=== PATIENT | male | born 1955 | race Caucasian/White ===

== ENCOUNTER → 2017-05-16 | Outpatient (CLI) | payer OTHER ==
[~2017-05-16] MED LIST: ALIGN4 M1 PO; ASPI-COR81 M2 PO; B COMPLEX1 TA2 PO; CLARITIN10 MG PO; CUTIVATE0.05% TOP; DEPAKOTE500 MG PO; DIVALPROEX SOD500 M2 PO; DOXEPIN HCL50 MG PO; DOXEPIN PO; EUCERIN1 CRE TOP; FLOVENT DI100 MCG/A1; FOLIC ACID1 MG PO; GOOD SENSE ASPI81 M3 PO; LIPI20 PO; LOVAZA1 G1 PO; METP PO; MULTI-VITAMINS1 TAB PO; NAMENDA10 M2 PO; OMEGA 3; OMEPRAZOLE DR20 M1 PO; PREPARATION H1 SUP RC; PROVENTIL0.09 MG/A1 INH; SERTRALINE HYD100 MG PO; VIT B COMPLEX; VITAMIN C250 MG PO; ZOLOFT100 MG PO; ZOSYN1 PD1 IV
== END | disposition home or self-care (01) ==
LOC: RD 10:17
DX: J18.9 Pneumonia, unspecified organism (principal); R05 Cough

== ENCOUNTER 2017-09-16 16:07 | Inpatient (IN) | payer OTHER ==
[~2017-09-16] VITALS: Ht 162.6 cm; Wt 93.6 kg
[2017-09-16 17:12] LABS: PLATELET COUNT 308 x10^3mcL (130-400)
[2017-09-16 17:13] LABS: RED CELL DISTRIBUTION WIDTH 15.5 % (11.5-14.5)
[2017-09-16 17:21] LABS: CALCIUM 9.4 mg/dL (8.5-10.1); CARBON DIOXIDE 27.1 mmol/L (21-32); CREATININE SERUM 1.5 mg/dL (0.7-1.3); POTASSIUM SERUM 4.2 mmol/L (3.5-5.1)
[2017-09-16 17:25] LABS: ALBUMIN 3.4 g/dL (3.4-5.0); BILIRUBIN TOTAL 0.5 mg/dL (0.20-1.00)
[2017-09-16 17:28] LABS: TOTAL PROTEIN, SERUM 8.5 g/dL (6.4-8.2)
[2017-09-16 17:50] LABS: BAND NEUTROPHIL 7 % (0-10); METAMYELOCTE 2 % (0-2); MONOCYTE 2 % (0-7); SEGMENTED NEUTROPHILS 82 % (37-75)
[2017-09-16 17:52] LABS: PLATELET MORPHOLOGY FEW LARGE PLATELETS; rbc morphology (normal/abnorm) NORMAL (NORMAL)
[2017-09-16 17:54] LABS: microscopic required? NO
[2017-09-16 18:22] LABS: UA SPECIFIC GRAVITY <=1.005 (1.005-1.035); urine erythrocyte NEGATIVE (NEGATIVE)
[2017-09-16 19:54] VITALS: BP 115/52
[2017-09-16] MEDS ORDERED: LIPITOR80 MG PO (20:09)
[2017-09-16 20:18] LABS: T3 TOTAL 0.64 ng/mL
[2017-09-16 20:21] VITALS: BP 115/52
[2017-09-16 20:21] LABS: FREE T4 0.65 ng/dL (0.76-1.46)
[2017-09-16 20:24] LABS: FREE THYROXINE INDEX 1.3 ug/dL (1.4-4.5); T4(THYROXINE) 3.8 ug/dL (4.7-13.3)
[2017-09-16] MEDS ORDERED: SEROQUEL100 MG PO (20:26)
[2017-09-16] MEDS ORDERED: DOXEPIN HCL50 MG PO (20:28)
[2017-09-16] MEDS ORDERED: LORAZEPAM0.5 MG PO (20:29)
[2017-09-16 20:32] LABS: AMPHETAMINE QUAL UR NONE DETECTED (NEG <=1000)
[2017-09-17] VITALS (14 sets, daily range): BP systolic 83–142; BP diastolic 47–83
[2017-09-17 06:02] LABS: CALCIUM 9.1 mg/dL (8.5-10.1); CARBON DIOXIDE 27.6 mmol/L (21-32); CHOLESTEROL/HDL RATIO 2.7; CREATININE SERUM 1.5 mg/dL (0.7-1.3); MAGNESIUM 1.6 mg/dL (1.8-2.4); PHOSPHOROUS 3.9 mg/dL (2.5-4.9); POTASSIUM SERUM 4.1 mmol/L (3.5-5.1)
[2017-09-17 06:05] LABS: BASOPHIL % 0.2 % (0-2); PLATELET COUNT 278 x10^3mcL (130-400)
[2017-09-17 06:20] LABS: RED CELL DISTRIBUTION WIDTH 15.7 % (11.5-14.5)
[2017-09-18] VITALS (19 sets, daily range): BP systolic 93–129; BP diastolic 40–59
[2017-09-18 05:45] LABS: BASOPHIL % 0.1 % (0-2); PLATELET COUNT 203 x10^3mcL (130-400)
[2017-09-18 05:47] LABS: RED CELL DISTRIBUTION WIDTH 15.9 % (11.5-14.5)
[2017-09-18 05:48] LABS: CALCIUM 8.6 mg/dL (8.5-10.1); CREATININE SERUM 1.3 mg/dL (0.7-1.3); MAGNESIUM 1.7 mg/dL (1.8-2.4); PHOSPHOROUS 1.8 mg/dL (2.5-4.9); POTASSIUM SERUM 3.6 mmol/L (3.5-5.1)
[2017-09-19] VITALS (22 sets, daily range): BP systolic 93–133; BP diastolic 48–99
[2017-09-19 05:42] LABS: BASOPHIL % 0.2 % (0-2); PLATELET COUNT 236 x10^3mcL (130-400)
[2017-09-19 05:43] LABS: RED CELL DISTRIBUTION WIDTH 15.9 % (11.5-14.5)
[2017-09-19 05:50] LABS: CARBON DIOXIDE 25.2 mmol/L (21-32); CHLORIDE SERUM 104 mmol/L (98-107); GFR1 > 60 mL/min; GLUCOSE SERUM 127 mg/dL (74-106); MAGNESIUM 2.1 mg/dL (1.8-2.4); PHOSPHOROUS 2.4 mg/dL (2.5-4.9); POTASSIUM SERUM 3.6 mmol/L (3.5-5.1); SODIUM SERUM 137 mmol/L (136-145)
[2017-09-20] VITALS (18 sets, daily range): BP systolic 83–124; BP diastolic 46–66
[2017-09-20 13:15] LABS: CALCIUM 8.1 mg/dL (8.5-10.1); CARBON DIOXIDE 26.2 mmol/L (21-32); CHLORIDE SERUM 107 mmol/L (98-107); CREATININE SERUM 0.8 mg/dL (0.7-1.3); GFR1 > 60 mL/min; GLUCOSE SERUM 117 mg/dL (74-106); PHOSPHOROUS 3.5 mg/dL (2.5-4.9); POTASSIUM SERUM 3.8 mmol/L (3.5-5.1); SODIUM SERUM 138 mmol/L (136-145)
[2017-09-20 13:43] LABS: BASOPHIL % 0.2 % (0-2); PLATELET COUNT 232 x10^3mcL (130-400)
[2017-09-20 13:48] LABS: RED CELL DISTRIBUTION WIDTH 16.2 % (11.5-14.5)
[2017-09-21] VITALS (19 sets, daily range): BP systolic 93–124; BP diastolic 50–89
[2017-09-21 06:11] LABS: CALCIUM 8.2 mg/dL (8.5-10.1); CARBON DIOXIDE 23.6 mmol/L (21-32); CHLORIDE SERUM 106 mmol/L (98-107); CREATININE SERUM 0.8 mg/dL (0.7-1.3); GFR1 > 60 mL/min; GLUCOSE SERUM 117 mg/dL (74-106); MAGNESIUM 1.8 mg/dL (1.8-2.4); PHOSPHOROUS 3.2 mg/dL (2.5-4.9); POTASSIUM SERUM 3.5 mmol/L (3.5-5.1); SODIUM SERUM 138 mmol/L (136-145)
[2017-09-21 06:13] LABS: BASOPHIL % 0.2 % (0-2); PLATELET COUNT 255 x10^3mcL (130-400)
[2017-09-21 06:15] LABS: RED CELL DISTRIBUTION WIDTH 16.3 % (11.5-14.5)
[2017-09-22] VITALS (18 sets, daily range): BP systolic 101–136; BP diastolic 52–87
[2017-09-22 08:21] LABS: BASOPHIL % 0.3 % (0-2); PLATELET COUNT 265 x10^3mcL (130-400)
[2017-09-22 08:23] LABS: RED CELL DISTRIBUTION WIDTH 16.5 % (11.5-14.5)
[2017-09-22 08:26] LABS: CALCIUM 7.9 mg/dL (8.5-10.1); CARBON DIOXIDE 27.3 mmol/L (21-32); CHLORIDE SERUM 107 mmol/L (98-107); CREATININE SERUM 0.7 mg/dL (0.7-1.3); GFR1 > 60 mL/min; GLUCOSE SERUM 132 mg/dL (74-106); MAGNESIUM 1.8 mg/dL (1.8-2.4); PHOSPHOROUS 3.3 mg/dL (2.5-4.9); POTASSIUM SERUM 3.8 mmol/L (3.5-5.1); SODIUM SERUM 138 mmol/L (136-145)
[2017-09-23] VITALS (17 sets, daily range): BP systolic 94–151; BP diastolic 52–82
[2017-09-23 06:03] LABS: CALCIUM 8.2 mg/dL (8.5-10.1); CHLORIDE SERUM 104 mmol/L (98-107); CREATININE SERUM 0.7 mg/dL (0.7-1.3); GFR1 > 60 mL/min; GLUCOSE SERUM 143 mg/dL (74-106); MAGNESIUM 1.8 mg/dL (1.8-2.4); PHOSPHOROUS 3.7 mg/dL (2.5-4.9); POTASSIUM SERUM 3.6 mmol/L (3.5-5.1); SODIUM SERUM 138 mmol/L (136-145)
[2017-09-23 06:15] LABS: BASOPHIL % 0.2 % (0-2); PLATELET COUNT 288 x10^3mcL (130-400)
[2017-09-23 06:24] LABS: RED CELL DISTRIBUTION WIDTH 15.7 % (11.5-14.5)
[2017-09-24] VITALS (16 sets, daily range): BP systolic 91–135; BP diastolic 47–111; Ht 162.6 cm; Wt 93.6 kg
[2017-09-24 05:37] LABS: BASOPHIL % 0.3 % (0-2); PLATELET COUNT 311 x10^3mcL (130-400)
[2017-09-24 05:38] LABS: RED CELL DISTRIBUTION WIDTH 16.1 % (11.5-14.5)
[2017-09-24 05:52] LABS: CALCIUM 8.3 mg/dL (8.5-10.1); CHLORIDE SERUM 103 mmol/L (98-107); CREATININE SERUM 0.8 mg/dL (0.7-1.3); GFR1 > 60 mL/min; GLUCOSE SERUM 125 mg/dL (74-106); MAGNESIUM 1.8 mg/dL (1.8-2.4); PHOSPHOROUS 4.1 mg/dL (2.5-4.9); POTASSIUM SERUM 3.7 mmol/L (3.5-5.1); SODIUM SERUM 140 mmol/L (136-145)
[2017-09-25] VITALS (12 sets, daily range): BP systolic 11–118; BP diastolic 42–86
[2017-09-25 05:48] LABS: BASOPHIL % 0.2 % (0-2); PLATELET COUNT 359 x10^3mcL (130-400)
[2017-09-25 05:54] LABS: CALCIUM 8.6 mg/dL (8.5-10.1); CARBON DIOXIDE 30.4 mmol/L (21-32); CHLORIDE SERUM 102 mmol/L (98-107); CREATININE SERUM 0.8 mg/dL (0.7-1.3); GFR1 > 60 mL/min; GLUCOSE SERUM 107 mg/dL (74-106); MAGNESIUM 1.9 mg/dL (1.8-2.4); PHOSPHOROUS 4.3 mg/dL (2.5-4.9); POTASSIUM SERUM 3.9 mmol/L (3.5-5.1); SODIUM SERUM 138 mmol/L (136-145)
[2017-09-25 05:56] LABS: RED CELL DISTRIBUTION WIDTH 15.5 % (11.5-14.5)
== END 2017-09-25 21:13 | disposition expired | DRG 207 ==
LOC: ED 16:07 → IC 17:38 → DU 17:38 → IC 09-17 05:20
PROVIDERS: Emergency Medicine; Family Medicine; Family Medicine Sports Medicine; ADMIT Family Medicine
PROC: 5A1955Z Respiratory Ventilation, Greater than 96 Consecutive Hours (ICD-10-PCS; principal; 2017-09-17)
PROC: 0BH17EZ Insertion of Endotracheal Airway into Trachea, Via Natural or Artificial Opening (ICD-10-PCS; 2017-09-17)
PROC: 05HM33Z Insertion of Infusion Device into Right Internal Jugular Vein, Percutaneous Approach (ICD-10-PCS; 2017-09-17)
PROC: B543ZZA Ultrasonography of Right Jugular Veins, Guidance (ICD-10-PCS; 2017-09-17)
PROC: 0DJ08ZZ Inspection of Upper Intestinal Tract, Via Natural or Artificial Opening Endoscopic (ICD-10-PCS; 2017-09-19)
DX: J69.0 Pneumonitis due to inhalation of food and vomit (principal); J96.01 Acute respiratory failure with hypoxia; N17.0 Acute kidney failure with tubular necrosis; K29.01 Acute gastritis with bleeding; E87.1 Hypo-osmolality and hyponatremia; D68.69 Other thrombophilia; E87.3 Alkalosis; E83.42 Hypomagnesemia; E83.39 Other disorders of phosphorus metabolism; E11.65 Type 2 diabetes mellitus with hyperglycemia; Q90.9 Down syndrome, unspecified; K21.9 Gastro-esophageal reflux disease without esophagitis; F32.9 Major depressive disorder, single episode, unspecified; J30.2 Other seasonal allergic rhinitis; E78.5 Hyperlipidemia, unspecified; E02 Subclinical iodine-deficiency hypothyroidism; I16.0 Hypertensive urgency; G30.9 Alzheimer's disease, unspecified; F02.80 Dementia in other diseases classified elsewhere, unspecified severity, without behavioral disturbance, psychotic disturbance, mood disturbance, and anxiety; M20.12 Hallux valgus (acquired), left foot; Q66.0 Congenital talipes equinovarus; Z68.34 Body mass index [BMI] 34.0-34.9, adult
CPT/HCPCS: 36556; 36600; 43235; 82962; 83880; 84439; 90658; A4628; C9113; J0330; J0696; J1170; J1450; J1642; J1940; J1956; J2060; J2250; J2270; J2765; J3010; J3475; J3490; J7030; J7040; J7613; J7620; J7626; J7644; J8597; Q0092